=== PATIENT | male | born 1970 | race Caucasian/White ===

== ENCOUNTER 2022-04-17 14:49 | Outpatient (CLI) | payer BC | END 2022-04-17 14:50 | disposition home or self-care (01) | LOC: BICMAMMO 14:49 | PROVIDERS: ATTEND Physician Assistant Medical | DX: Z13.820 Encounter for screening for osteoporosis (principal); K74.3 Primary biliary cirrhosis; M85.851 Other specified disorders of bone density and structure, right thigh | CPT/HCPCS: 77080 ==